=== PATIENT | male | born 1960 | race Caucasian/White ===

== ENCOUNTER 2016-10-18 15:59 | Emergency (ER) | payer MEDICAID ==
[2016-10-18 16:11] VITALS: TEMP 98.5
[2016-10-18] MEDS ORDERED: Lidocaine 1% Inj (20ml) INFIL ONE (16:34)
[2016-10-18] MEDS ORDERED: Lidocaine 2% w Epi 1:100,000 Inj IJ ONE (16:37)
[2016-10-18] MEDS ORDERED: Bacitracin 500 Units/gm Oint Foilpak UD TOP ONE (16:48)
--- NOTE | 2016-10-18 17:03 | C.PDOC ---
History Of Present Illness 55-year-old male presents to the ED for evaluation of injury to left forearm and hand which he sustained earlier today. Patient states he accidentally scraped his left arm against a surface. Patient takes Plavix as prescribes and admits to taking the medication today. Patient presents to the ED for evaluation because the area has continued to bleed. Otherwise, he denies falls, head injury/LOC, extremity numbness/weakness. Time Seen by Provider: 10/18/16 16:21 Chief Complaint (Nursing): Abnormal Skin Integrity History Per: Patient History/Exam Limitations: no limitations Onset/Duration Of Symptoms: Hrs Current Symptoms Are (Timing): Still Present Location Of Injury: Left: Arm (forearm ) Quality Of Symptoms: Painful, Other (+mild bleeding ) Additional History Per: Patient Past Medical History Reviewed: Historical Data, Nursing Documentation, Vital Signs Vital Signs: Last Vital Signs Temp 98.5 F 10/18/16 16:09 Pulse 78 10/18/16 17:30 Resp 17 10/18/16 17:30 BP 126/75 10/18/16 17:30 Pulse Ox 94 L 10/18/16 19:09 - Medical History PMH: Arthritis, HTN, Hyperthyroidism Surgical History: Coronary Stent Family History: States: Unknown Family Hx - Social History Hx Alcohol Use: No Hx Substance Use: No Review Of Systems Skin: Positive for: Other (+lect arm laceration ) Neurological: Negative for: Weakness, Numbness, Other (LOC/ head injury ) Physical Exam - Physical Exam Appears: Non-toxic, No Acute Distress Skin: Normal Color, Warm, Dry, Other (+left upper extremity: 1cm, curved laceration to left distal arm with mild active bleeding. superficial abrasions to left hand and wrist, mild active bleeding. ) Head: Atraumatic, Normacephalic Eye(s): bilateral: Normal Inspection Extremity: Normal ROM, Capillary Refill (less than 2 seconds ) Pulses: Left Radial: Normal Neurological/Psych: Oriented x3, Normal Speech, Normal Cognition Gait: Steady ED Course And Treatment O2 Sat by Pulse Oximetry: 94 (on RA) Pulse Ox Interpretation: Normal Medical Decision Making Medical Decision Making: Impression: 55y/o male with laceration to left arm. Pressure dressing was applied. Plan: * Adacel IM * Bacitracin TOP * Lidocaine 1% with epinephrine Progress: Patient received Adacel IM. Pressure dresssing was applied. Wound was cleansed and irrigated with normal saline. Intended to repair laceration using lidocaine with epinephine. Prior to performing procedure, patient was no longer bleeding and there was no indication for a laceration repair. Wound is superficial with no deep structure involvement. Will apply Dermabond to affected area. Pressure dressing applied to laceration. Patient tolerated well with no complications. Patient was observed in the ED and continued to have no bleeding. On reassessment, patient is resting comfortably, showing no signs of distress and is stable for discharge. Patient is given wound care instructions and is advised to follow up with his PMD within 1-2 days for further evaluation. Disposition Counseled Patient/Family Regarding: Diagnosis, Need For Followup - Disposition Referrals: Rubio Sullivan MD [Medical Doctor] - Disposition: HOME/ ROUTINE Disposition Time: 16:54 Condition: STABLE Additional Instructions: Keep area clean and dry. May wash gently with soap and water, do not use alcohol or iodine solution. Return to ER if fever occurs, redness or swelling around wound, pus in the wound. Skin glue was used to close your wound, do not apply ointment to area as it may dissolve glue. Glue patch will gradually fall off in few days. Instructions: Skin Adhesive Care (ED) Forms: [facility] ([place]) - POA Present On Arrival: None - Clinical Impression Clinical Impression: Laceration of arm, Abrasion of arm, left - PA / [employer] / Resident Statement MD/DO has reviewed & agrees with the documentation as recorded. - Scribe Statement The provider has reviewed the documentation as recorded by the Scribe (Sunita Mohamud) All medical record entries made by the Scribe were at my direction and personally dictated by me. I have reviewed the chart and agree that the record accurately reflects my personal performance of the history, physical exam, medical decision making, and the department course for this patient. I have also personally directed, reviewed, and agree with the discharge instructions and disposition.
[2016-10-18] MEDS ORDERED: Bacitracin 500 Units/gm Oint Foilpak UD ONE (17:16)
[2016-10-18 17:30] VITALS: BP 126/75; PULSE 78; RESP 17
[2016-10-18 18:36] VITALS: O2SAT 94
== END 2016-10-18 17:29 | disposition home or self-care (01) ==
LOC: C.ER 15:59
DX: S51.812A Laceration without foreign body of left forearm, initial encounter (principal); S60.812A Abrasion of left wrist, initial encounter; S60.512A Abrasion of left hand, initial encounter; W22.8XXA Striking against or struck by other objects, initial encounter

== ENCOUNTER 2018-07-08 18:21 | Outpatient (CLI) | payer MEDICAID | END 2018-07-08 18:22 | disposition home or self-care (01) | LOC: C.SLEEP 18:22 | DX: G47.33 Obstructive sleep apnea (adult) (pediatric) (principal) ==